=== PATIENT | male | born 1985 | race Caucasian/White ===

== ENCOUNTER 2023-08-20 05:40 | Day surgery (SDC) | payer BC ==
[~2023-08-20] VITALS: Ht 177.8 cm; Wt 116.4 kg
[2023-08-20] VITALS (10 sets, daily range): BP systolic 108–138; BP diastolic 63–83; PULSE 76–107; RESP 11–16; TEMP 97.1; O2SAT 93–98
[~2023-08-20 05:40] MED LIST: NO HOME MEDS
[2023-08-20] MEDS: famotidine 20mg tablet PO ONE (06:32)
[2023-08-20] MEDS: ringers solution, lacted 1,000 ML IV SCH (06:32)
[2023-08-20] MEDS: tranexamic acid inj. 1,000 MG in normal saline IV soln 100ML IV ONE (06:33)
[2023-08-20] MEDS: cefazolin 2gm/D5W 100mL 100 ML IV ONE (06:33)
[2023-08-20] MEDS ORDERED: triamcinolone acetonide 40mg/ml inj ONE (07:13)
[2023-08-20] MEDS: oxymetazoline 15 ML nasal spray NS ONE ×2 (07:31→09:16)
[2023-08-20] MEDS ORDERED: fentaNYL/PF 50MCG/1 ML 2ML syringe ONE (07:54)
[2023-08-20] MEDS ORDERED: midazolam 1 mg/ML 2ml injection ONE (07:54)
[2023-08-20] MEDS ORDERED: dexamethasone sod phosphate 4mg/ml inj. ONE (07:55)
[2023-08-20] MEDS ORDERED: LIDOcaine 2% (20mg/ml) 5ml vial ONE (07:55)
[2023-08-20] MEDS ORDERED: propofol inj 20 ML IV ONE (07:55)
[2023-08-20] MEDS ORDERED: ondansetron/PF 4mg/2ml inj ONE (07:55)
[2023-08-20] MEDS ORDERED: labetalol 20mg/4ml (5mg/ml) syringe IV PRN (08:00)
[2023-08-20] MEDS ORDERED: ringers solution, lacted 1,000 ML IV SCH (08:00)
[2023-08-20] MEDS ORDERED: ondansetron/PF 4mg/2ml inj IV PRN (08:00)
[2023-08-20] MEDS ORDERED: morphine 4 MG/ML inj SYRINge IV PRN (08:00)
[2023-08-20] MEDS ORDERED: morphine 2 MG/ML inj. syringe IV PRN (08:00)
[2023-08-20] MEDS ORDERED: fentaNYL/PF 50MCG/1 ML 2ML syringe IV PRN ×2 (08:00)
[2023-08-20] MEDS ORDERED: hydrALAZINE 20mg/ml inj. IV PRN (08:00)
[2023-08-20] MEDS ORDERED: acetaminophen 1000 MG/100ml vial IV ONE (08:12)
[2023-08-20] MEDS ORDERED: sevoflurane 250ml liquid IH ONE (08:12)
[2023-08-20] MEDS: cocaine 4% topical solution 4ml bottle ONE (09:14)
[2023-08-20] MEDS: LIDOcaine 1% w/EPI 1:100,000 inj. MDV 50 ML VIAL ONE (09:15)
[2023-08-20] MEDS: epiNEPHrine 1 mg/ml 30ml MDV ONE (09:15)
[2023-08-20] MEDS: mupirocin 2% ointment 22GM ONE (09:17)
[2023-08-20] MEDS: tranexamic acid 100mg/ml inj. ONE (09:26)
[2023-08-20] MEDS: salt irrigation nasal spray 45 ML SPRAY NS PRN (10:37)
[2023-08-20] MEDS: mupirocin 2% ointment 22GM TP SCH (10:45)
[2023-08-20] MEDS ORDERED: oxymetazoline 15 ML nasal spray NS SCH (20:00)
== END 2023-08-20 11:08 | disposition home or self-care (01) ==
LOC: PAS 05:40
PROVIDERS: ATTEND Otolaryngology
DX: J34.2 Deviated nasal septum (principal); J34.3 Hypertrophy of nasal turbinates; J32.8 Other chronic sinusitis; J34.89 Other specified disorders of nose and nasal sinuses; J34.1 Cyst and mucocele of nose and nasal sinus; J33.8 Other polyp of sinus; E66.9 Obesity, unspecified; Z68.36 Body mass index [BMI] 36.0-36.9, adult; G43.909 Migraine, unspecified, not intractable, without status migrainosus; G47.30 Sleep apnea, unspecified; Z98.890 Other specified postprocedural states; Z79.899 Other long term (current) drug therapy
CPT/HCPCS: 30140; 30520; 31240; 31254; 31267; 61782; 82948; A6402; J0171; J0690; J1100; J2250; J2405; J2704; J3010; J3301; J3490; J7030; J7050; J7120; Z7506; Z7508; Z7512; A4618; A6449; A7000; J0131